=== PATIENT | female | born 2000 | race Two or more races ===

== ENCOUNTER 2023-02-23 19:33 | Observation (INO) | payer MEDICAID ==
[~2023-02-23] VITALS: Ht 157.5 cm; Wt 52.2 kg
[2023-02-23] MEDS ORDERED: PREN-537 PO (20:48)
[2023-02-23 20:49] VITALS: BP 109/63; PULSE 86; RESP 18; TEMP 98.3
== END 2023-02-23 21:35 | disposition home or self-care (01) ==
LOC: MLD 19:33
PROVIDERS: ADMIT Obstetrics & Gynecology; ATTEND Obstetrics & Gynecology
DX: O26.892 Other specified pregnancy related conditions, second trimester (principal); R10.9 Unspecified abdominal pain; Z3A.22 22 weeks gestation of pregnancy
CPT/HCPCS: G0378